=== PATIENT | male | born 1965 | race Caucasian/White ===

== ENCOUNTER 2019-07-22 08:28 | Inpatient (IN) | payer BC ==
[~2019-07-22] VITALS: Ht 182.9 cm; Wt 106.0 kg
[2019-07-22] MEDS ORDERED: PANTOPRAZOLE 80 MG in SODIUM CHLORIDE 0.9% 50 ML IVPB ONE (08:56)
[2019-07-22] MEDS ORDERED: PANTOPRAZOLE 80 MG in SODIUM CHLORIDE 0.9% 100 ML IV SCH (08:56)
[2019-07-22] MEDS ORDERED: ONDANSETRON 2MG/ML, 2ML IVPush ONE (09:00)
[2019-07-22] MEDS ORDERED: ADENOSINE 6 MG/2 ML IVPush ONE (09:00)
[2019-07-22] MEDS ORDERED: SODIUM CHLORIDE FLUSH 10ML SYR IVF ONE (09:00)
[2019-07-22] MEDS ORDERED: SODIUM CHLORIDE 0.9% 1,000ML IVBOLUS ONE ×2 (09:00→10:30)
[2019-07-22] MEDS ORDERED: ADENOSINE 6 MG/2 ML ONE (09:11)
[2019-07-22] MEDS ORDERED: DILTIAZEM 5 MG/ML, 5ML IVPush STA (09:16)
[2019-07-22] MEDS ORDERED: ONDANSETRON 2MG/ML, 2ML ONE (09:25)
[2019-07-22] MEDS ORDERED: DILTIAZEM 5 MG/ML, 5ML ONE (09:25)
[2019-07-22 09:51] LABS: MEAN CORPUSCULAR HEMOGLOBIN 32.2 pg (27.5-34.5); MEAN CORPUSCULAR HGB CONC 33.6 g/dL (33.2-36.2); MEAN CORPUSCULAR VOLUME 95.8 fL (81-97); PLATELET COUNT 259 x10^3/uL (130-400); RED CELL DISTRIBUTION WIDTH 12.8 % (9.4-14.8)
[2019-07-22] MEDS ORDERED: DILTIAZEM 125 MG in SODIUM CHLORIDE 0.9% 100 ML IV SCH (09:54)
[2019-07-22 10:02] LABS: PROTHROMBIN TIME 10.5 Seconds (9.6-11.5)
[2019-07-22] MEDS ORDERED: MORPHINE SULFATE 4 MG/ML, 1ML ONE ×2 (10:22→12:00)
[2019-07-22] MEDS ORDERED: DILTIAZEM 5 MG/ML, 10ML ONE (10:22)
[2019-07-22 10:28] LABS: ALANINE AMINOTRANSFERASE 32 U/L (12-78); ALBUMIN 4.3 g/dL (3.4-5.0); ANION GAP 18 mmol/L (5-15); BASOPHILS # (AUTO) 0.02 x10^3/uL (0-0.1); BASOPHILS % (AUTO) 0 % (0-1); CALCIUM 13.6 mg/dL (8.5-10.1); CHLORIDE 92 mmol/L (98-107); CREATININE 1.64 mg/dL (0.7-1.3); EOSINOPHILS % (AUTO) 0 % (1-7); LYMPHOCYTES # (AUTO) 0.76 x10^3/uL (1-3.4); LYMPHOCYTES % (AUTO) 4 % (22-44); MD SCAN; MONOCYTES # (AUTO) 0.41 x10^3/uL (0.2-0.8); MONOCYTES % (AUTO) 2 % (2-9); NEUTROPHILS # (AUTO) 18.69 x10^3/uL (1.8-6.8); NEUTROPHILS % (AUTO) 94 % (42-75)
[2019-07-22] MEDS ORDERED: DILTIAZEM 5 MG/ML, 5ML IVPush ONE (10:30)
[2019-07-22] MEDS ORDERED: morphine SULFATE 10 MG/ML, 1ML IVPush ONE ×2 (10:30→12:30)
[2019-07-22 10:33] LABS: ALKALINE PHOSPHATASE 116 U/L (45-117); BILIRUBIN,TOTAL 2.3 mg/dL (0.2-1.0); TOTAL PROTEIN 8.2 g/dL (6.4-8.2)
[2019-07-22 10:41] LABS: TROPONIN I 0.246 ng/mL (0.000-0.045)
[2019-07-22] MEDS ORDERED: ASPIRIN 81 MG TABLET CHEW PO ONE (11:00)
[2019-07-22] MEDS ORDERED: ASPIRIN 81 MG TABLET CHEW ONE (11:30)
[2019-07-22] MEDS ORDERED: ASPIRIN 81 MG TABLET EC ONE (11:30)
[2019-07-22] MEDS ORDERED: LORazepam 1MG TABLET PO PRN ×2 (12:00)
[2019-07-22] MEDS ORDERED: ACETAMINOPHEN 325 MG TABLET PO PRN (12:00)
[2019-07-22] MEDS ORDERED: LORazepam 2 MG/ML, 1ML IV PRN ×3 (12:00)
[2019-07-22] MEDS ORDERED: ONDANSETRON 2MG/ML, 2ML IVPush PRN (12:00)
[2019-07-22] MEDS ORDERED: LORazepam 0.5MG TABLET PO PRN (12:00)
[2019-07-22] MEDS ORDERED: ONDANSETRON ODT 4 MG PO PRN (12:00)
--- NOTE | 2019-07-22 12:00 | NUR ---
LATE ENTRY: PT TO ROOM WITH C/O NAUSEA AND VOMITING OF COFFEE GROUND MATERIAL. OCCULT STOOL POSITIVE AT BEDSIDE. 2 IVS STARTED, LAC AND RAC. MEDICATED PER MAR. PT DENIES ANY FURTHER NEEDS OR CONCERNS AT THIS TIME.
[2019-07-22 12:35] LABS: TROPONIN I 0.181 ng/mL (0.000-0.045)
--- NOTE | 2019-07-22 13:21 | NUR ---
PT UPDATED ON PLAN OF CARE. REPORT TO RECEIVING RN. PT DENIES ANY FURTHER NEEDS OR CONCERNS AT THIS TIME. CALL LIGHT IN REACH.
--- NOTE | 2019-07-22 13:23 | NUR ---
PT DENIES ANY FEELING OF ALCOHOL WITHDRAWAL AT THIS TIME, AWARE OF NEED TO MONITOR FOR SYMPTOMS, AGREEABLE TO NOTIFYING STAFF OF ANY NEED IN THE FUTURE. PT AWAITING TRANSPORT AT THIS TIME. CALL LIGHT IN REACH.
[2019-07-22] MEDS ORDERED: SODIUM CHLORIDE 0.9% 1,000 ML IV SCH (14:00)
[2019-07-22 14:38] VITALS: BP 136/81
[2019-07-22] MEDS: SODIUM CHLORIDE 0.9% 1,000 ML IV SCH (14:54)
[2019-07-22] MEDS: INSULIN LISPRO 100 UNITS/ML, PEN SQ-INSULIN SCH ×2 (16:00→21:00)
[2019-07-22] MEDS: PANTOPRAZOLE 80 MG in SODIUM CHLORIDE 0.9% 100 ML IV SCH (16:30)
[2019-07-22] MEDS: LACTOBACILLUS CHEW TABLET PO SCH (17:00)
[2019-07-22 18:03] LABS: TROPONIN I 0.114 ng/mL (0.000-0.045)
[2019-07-22 20:16] VITALS: BP 125/81
[2019-07-22] MEDS: DILTIAZEM 125 MG in SODIUM CHLORIDE 0.9% 100 ML IV SCH (21:09)
[2019-07-22] MEDS ORDERED: MAALOX/HYOSCYAMINE/LIDOCAINE 45 ML BTL PO ONE (21:30)
[2019-07-23 01:06] VITALS: BP 145/94
[2019-07-23] MEDS: PANTOPRAZOLE 80 MG in SODIUM CHLORIDE 0.9% 100 ML IV SCH ×2 (02:49→11:30)
[2019-07-23 06:37] LABS: ANION GAP 9 mmol/L (5-15); CALCIUM 9.9 mg/dL (8.5-10.1); CHLORIDE 106 mmol/L (98-107); CREATININE 1.07 mg/dL (0.7-1.3)
[2019-07-23] MEDS: INSULIN LISPRO 100 UNITS/ML, PEN SQ-INSULIN SCH ×4 (07:00→20:32)
[2019-07-23 07:25] LABS: MEAN CORPUSCULAR HEMOGLOBIN 32.8 pg (27.5-34.5); MEAN CORPUSCULAR HGB CONC 34.4 g/dL (33.2-36.2); MEAN CORPUSCULAR VOLUME 95.2 fL (81-97); MEAN PLATELET VOLUME 8.1 fL (7.4-10.4); PLATELET COUNT 186 x10^3/uL (130-400); RED CELL DISTRIBUTION WIDTH 12.8 % (9.4-14.8)
[2019-07-23] MEDS ORDERED: PANTOPRAZOLE 40 MG IV IVPush SCH (07:30)
[2019-07-23] MEDS: LACTOBACILLUS CHEW TABLET PO SCH ×3 (08:00→17:59)
[2019-07-23 08:09] LABS: BASOPHILS # (AUTO) 0.03 x10^3/uL (0-0.1); BASOPHILS % (AUTO) 0 % (0-1); EOSINOPHILS # (AUTO) 0.01 x10^3/uL (0-0.4); EOSINOPHILS % (AUTO) 0 % (1-7); LYMPHOCYTES # (AUTO) 0.67 x10^3/uL (1-3.4); LYMPHOCYTES % (AUTO) 5 % (22-44); MD SCAN; MONOCYTES # (AUTO) 0.58 x10^3/uL (0.2-0.8); MONOCYTES % (AUTO) 4 % (2-9); NEUTROPHILS # (AUTO) 12.71 x10^3/uL (1.8-6.8); NEUTROPHILS % (AUTO) 91 % (42-75)
[2019-07-23 08:17] VITALS: BP 118/71
[2019-07-23] MEDS: SODIUM CHLORIDE 0.9% 1,000 ML IV SCH (10:06)
[2019-07-23 13:30] VITALS: BP 132/91
[2019-07-23] MEDS: DILTIAZEM 125 MG in SODIUM CHLORIDE 0.9% 100 ML IV SCH (16:43)
[2019-07-23] MEDS: PANTOPROZOLE 40MG TABLET PO SCH ×2 (17:30→20:21)
[2019-07-23] MEDS ORDERED: MAALOX/HYOSCYAMINE/LIDOCAINE 45 ML BTL PO PRN (18:00)
[2019-07-23] MEDS ORDERED: CALCIUM GLUCONATE 9.2 MEQ in SODIUM CHLORIDE 0.9% 100 ML IV ONE (18:00)
[2019-07-23] MEDS: THIAMINE 100MG TABLET PO SCH (20:21)
[2019-07-23 20:26] VITALS: BP 155/95
[2019-07-24 01:26] VITALS: BP 119/69
[2019-07-24] MEDS: SODIUM CHLORIDE 0.9% 1,000 ML IV SCH ×2 (02:07→16:35)
[2019-07-24 02:37] LABS: MICROSCOPIC NOT IND
[2019-07-24 02:42] LABS: CULTURE INDICATED? NO
[2019-07-24] MEDS: DILTIAZEM 125 MG in SODIUM CHLORIDE 0.9% 100 ML IV SCH ×2 (03:41→09:30)
[2019-07-24 06:30] LABS: BASOPHILS # (AUTO) 0.04 x10^3/uL (0-0.1); BASOPHILS % (AUTO) 1 % (0-1); EOSINOPHILS # (AUTO) 0.03 x10^3/uL (0-0.4); EOSINOPHILS % (AUTO) 0 % (1-7); LYMPHOCYTES # (AUTO) 1.14 x10^3/uL (1-3.4); LYMPHOCYTES % (AUTO) 15 % (22-44); MD NO; MEAN CORPUSCULAR HEMOGLOBIN 32.5 pg (27.5-34.5); MEAN CORPUSCULAR VOLUME 95.5 fL (81-97); MEAN PLATELET VOLUME 8.5 fL (7.4-10.4); MONOCYTES # (AUTO) 0.54 x10^3/uL (0.2-0.8); MONOCYTES % (AUTO) 7 % (2-9); NEUTROPHILS # (AUTO) 5.93 x10^3/uL (1.8-6.8); NEUTROPHILS % (AUTO) 77 % (42-75); PLATELET COUNT 148 x10^3/uL (130-400); RED BLOOD COUNT 3.65 x10^6/uL (4.38-5.82); RED CELL DISTRIBUTION WIDTH 12.8 % (9.4-14.8)
[2019-07-24 06:33] LABS: ALBUMIN 2.8 g/dL (3.4-5.0); ANION GAP 5 mmol/L (5-15); CALCIUM 9.2 mg/dL (8.5-10.1); CHLORIDE 110 mmol/L (98-107)
[2019-07-24 06:36] LABS: ALANINE AMINOTRANSFERASE 31 U/L (12-78); ALKALINE PHOSPHATASE 55 U/L (45-117); BILIRUBIN,TOTAL 0.7 mg/dL (0.2-1.0); CREATININE 0.98 mg/dL (0.7-1.3); TOTAL PROTEIN 5.1 g/dL (6.4-8.2)
[2019-07-24] MEDS: INSULIN LISPRO 100 UNITS/ML, PEN SQ-INSULIN SCH (07:00)
[2019-07-24 07:13] VITALS: BP 125/77
[2019-07-24] MEDS: DILTIAZEM 90 MG TABLET PO SCH ×4 (08:33→20:48)
[2019-07-24] MEDS: LACTOBACILLUS CHEW TABLET PO SCH ×3 (08:33→16:21)
[2019-07-24] MEDS: THIAMINE 100MG TABLET PO SCH ×2 (08:33→20:48)
[2019-07-24] MEDS: PANTOPROZOLE 40MG TABLET PO SCH ×2 (08:33→20:48)
[2019-07-24] MEDS ORDERED: MAGNESIUM SULFATE/D5W 100 ML IV ONE (09:00)
[2019-07-24] MEDS: POTASSIUM CHLORIDE 20 MEQ TAB.ER.PRT PO SCH ×2 (09:44→11:08)
[2019-07-24] MEDS: POTASSIUM PHOSPHATE 44 MEQ in SODIUM CHLORIDE 0.9% 500 ML IV SCH ×2 (09:58→20:48)
[2019-07-24 13:22] VITALS: BP 108/70
[2019-07-24 19:24] VITALS: BP 117/66
[2019-07-25 01:32] VITALS: BP 134/83
[2019-07-25] MEDS ORDERED: PROPRANOLOL 10 MG TABLET ONE ×4 (05:53→21:19)
[2019-07-25] MEDS: PROPRANOLOL 20 MG TABLET PO SCH ×2 (06:00→14:00)
[2019-07-25 06:03] VITALS: BP 151/93
[2019-07-25] MEDS: DILTIAZEM 90 MG TABLET PO SCH ×4 (06:05→21:32)
[2019-07-25 07:13] LABS: BASOPHILS # (AUTO) 0.04 x10^3/uL (0-0.1); BASOPHILS % (AUTO) 1 % (0-1); EOSINOPHILS # (AUTO) 0.13 x10^3/uL (0-0.4); EOSINOPHILS % (AUTO) 2 % (1-7); LYMPHOCYTES # (AUTO) 1.25 x10^3/uL (1-3.4); LYMPHOCYTES % (AUTO) 17 % (22-44); MD NO; MEAN CORPUSCULAR HEMOGLOBIN 32.5 pg (27.5-34.5); MEAN CORPUSCULAR HGB CONC 33.5 g/dL (33.2-36.2); MEAN PLATELET VOLUME 8.2 fL (7.4-10.4); MONOCYTES # (AUTO) 0.53 x10^3/uL (0.2-0.8); MONOCYTES % (AUTO) 7 % (2-9); NEUTROPHILS # (AUTO) 5.47 x10^3/uL (1.8-6.8); NEUTROPHILS % (AUTO) 74 % (42-75); PLATELET COUNT 178 x10^3/uL (130-400); RED BLOOD COUNT 4.03 x10^6/uL (4.38-5.82)
[2019-07-25 07:24] LABS: ALBUMIN 3.2 g/dL (3.4-5.0); ANION GAP 7 mmol/L (5-15); CALCIUM 8.5 mg/dL (8.5-10.1); CHLORIDE 111 mmol/L (98-107)
[2019-07-25 07:27] LABS: ALANINE AMINOTRANSFERASE 47 U/L (12-78); ALKALINE PHOSPHATASE 61 U/L (45-117); BILIRUBIN,TOTAL 0.4 mg/dL (0.2-1.0); CREATININE 1.01 mg/dL (0.7-1.3); TOTAL PROTEIN 5.8 g/dL (6.4-8.2)
[2019-07-25 07:48] VITALS: BP 127/84
[2019-07-25] MEDS ORDERED: FENTANYL PF 100 MCG/2ML IV PRN (08:30)
[2019-07-25] MEDS: LACTOBACILLUS CHEW TABLET PO SCH ×3 (09:19→17:04)
[2019-07-25] MEDS: THIAMINE 100MG TABLET PO SCH ×2 (09:19→21:32)
[2019-07-25] MEDS: PANTOPROZOLE 40MG TABLET PO SCH ×2 (09:19→21:32)
[2019-07-25] MEDS ORDERED: PROPOFOL 10 MG/ML, 20ML ONE (10:46)
[2019-07-25] MEDS: SUCRALFATE 1 GM/10 ML UDC PO SCH ×3 (12:32→21:32)
[2019-07-25] MEDS ORDERED: REGADENOSON 0.4 MG/5 ML SYRINGE ONE (13:27)
[2019-07-25] MEDS ORDERED: DILT360T PO (17:28)
[2019-07-25] MEDS ORDERED: PROP40TA PO (17:28)
[2019-07-25] MEDS ORDERED: Maalox/Hyoscyamine/Lidocaine PO (17:28)
[2019-07-25] MEDS ORDERED: ONDA4TAB13 PO (17:28)
[2019-07-25] MEDS ORDERED: PANT40TA5 PO (17:28)
[2019-07-25] MEDS ORDERED: THIA100T67 PO (17:28)
[2019-07-25] MEDS ORDERED: ACID1TAB7 PO (17:28)
[2019-07-25] MEDS ORDERED: PROPRANOLOL 20 MG TABLET PO ONE (17:30)
[2019-07-25] MEDS ORDERED: ERGOCALCIFEROL 50,000 UNIT CAPSULE PO SCH (17:30)
[2019-07-25 20:08] VITALS: BP 132/81
[2019-07-25] MEDS: PROPRANOLOL 40 MG TABLET PO SCH (21:32)
[2019-07-25] MEDS: SODIUM CHLORIDE 0.9% 1,000 ML IV SCH (21:33)
[2019-07-26 01:28] VITALS: BP 138/79
[2019-07-26] MEDS: DILTIAZEM 90 MG TABLET PO SCH (05:55)
[2019-07-26] MEDS: PROPRANOLOL 40 MG TABLET PO SCH (05:55)
[2019-07-26 07:23] VITALS: BP 129/84
[2019-07-26] MEDS: LACTOBACILLUS CHEW TABLET PO SCH (08:24)
[2019-07-26] MEDS: PANTOPROZOLE 40MG TABLET PO SCH (08:25)
[2019-07-26] MEDS: SUCRALFATE 1 GM/10 ML UDC PO SCH (08:25)
[2019-07-26] MEDS: THIAMINE 100MG TABLET PO SCH (08:25)
[2019-07-26] MEDS ORDERED: SUCR1TAB33 PO (09:44)
== END 2019-07-26 11:25 | disposition home or self-care (01) | DRG 377 ==
LOC: ED 09:00 → EDIP 11:54 → 5SO 14:27
PROVIDERS: ADMIT Internal Medicine; ATTEND Internal Medicine
PROC: 0DJ08ZZ Inspection of Upper Intestinal Tract, Via Natural or Artificial Opening Endoscopic (ICD-10-PCS; principal; 2019-07-25 09:00)
DX: K29.21 Alcoholic gastritis with bleeding (principal); G93.41 Metabolic encephalopathy; E87.1 Hypo-osmolality and hyponatremia; N17.9 Acute kidney failure, unspecified; F23 Brief psychotic disorder; K20.9 Esophagitis, unspecified; E11.65 Type 2 diabetes mellitus with hyperglycemia; I73.89 Other specified peripheral vascular diseases; F10.20 Alcohol dependence, uncomplicated; E66.9 Obesity, unspecified; E83.52 Hypercalcemia; E83.51 Hypocalcemia; I10 Essential (primary) hypertension; I48.91 Unspecified atrial fibrillation; K31.89 Other diseases of stomach and duodenum; Z80.3 Family history of malignant neoplasm of breast; Z85.828 Personal history of other malignant neoplasm of skin; Z87.19 Personal history of other diseases of the digestive system
CPT/HCPCS: 36415; 71045; 78452; 80048; 80053; 81003; 82306; 82330; 82962; 83036; 83605; 83690; 83735; 84100; 84443; 84484; 85014; 85018; 85025; 85610; 93005; 93017; 93306; 99291; G0378; J0153; J0610; J2405; J2704; J2785; A9502; C9113; J2060; J2270; J7030; J7040

== ENCOUNTER 2019-12-17 08:21 | Inpatient (IN) | payer BC ==
[~2019-12-17] VITALS: Ht 182.9 cm; Wt 104.6 kg
[~2019-12-17 08:21] MED LIST: ACID1TAB7 PO; DILT360T PO; Maalox/Hyoscyamine/Lidocaine PO; ONDA4TAB13 PO; PANT40TA5 PO; PROP40TA PO; SUCR1TAB33 PO; THIA100T67 PO
[2019-12-17] MEDS ORDERED: THIAMINE 100MG TABLET PO ONE (09:00)
[2019-12-17] MEDS ORDERED: SODIUM CHLORIDE FLUSH 10ML SYR IVF ONE (09:00)
[2019-12-17] MEDS ORDERED: SODIUM CHLORIDE 0.9% 1,000ML IVBOLUS ONE (09:00)
[2019-12-17] MEDS ORDERED: THIAMINE 100MG TABLET ONE (09:08)
[2019-12-17] MEDS ORDERED: LORazepam 2 MG/ML, 1ML ONE ×2 (09:08→09:48)
[2019-12-17 09:16] LABS: BASOPHILS % (AUTO) 0 % (0-1); EOSINOPHILS # (AUTO) 0.01 x10^3/uL (0-0.4); EOSINOPHILS % (AUTO) 0 % (1-7); LYMPHOCYTES # (AUTO) 0.66 x10^3/uL (1-3.4); LYMPHOCYTES % (AUTO) 7 % (22-44); MD NO; MEAN CORPUSCULAR HGB CONC 34.2 g/dL (33.2-36.2); MEAN CORPUSCULAR VOLUME 96.4 fL (81-97); MEAN PLATELET VOLUME 8.3 fL (7.4-10.4); MONOCYTES # (AUTO) 0.56 x10^3/uL (0.2-0.8); MONOCYTES % (AUTO) 6 % (2-9); NEUTROPHILS # (AUTO) 7.98 x10^3/uL (1.8-6.8); NEUTROPHILS % (AUTO) 87 % (42-75); PLATELET COUNT 135 x10^3/uL (130-400); RED BLOOD COUNT 5.11 x10^6/uL (4.38-5.82); RED CELL DISTRIBUTION WIDTH 14.9 % (9.4-14.8)
[2019-12-17] MEDS: LORazepam 2 MG/ML, 1ML IVPush PRN ×5 (09:18→18:03)
[2019-12-17 09:28] LABS: ALBUMIN 4.5 g/dL (3.4-5.0); ANION GAP 12 mmol/L (5-15); CALCIUM 8.9 mg/dL (8.5-10.1); CHLORIDE 107 mmol/L (98-107)
[2019-12-17 09:36] LABS: ALANINE AMINOTRANSFERASE 62 U/L (12-78); ALKALINE PHOSPHATASE 70 U/L (45-117); BILIRUBIN,TOTAL 0.9 mg/dL (0.2-1.0); CREATININE 1.43 mg/dL (0.7-1.3); SALICYLATE LEVEL 8.9 mg/dL (2.8-20.0); TOTAL PROTEIN 7.7 g/dL (6.4-8.2)
[2019-12-17 09:38] LABS: INTERNATIONAL NORMALIZED RATIO 0.94 (0.93-1.1)
[2019-12-17] MEDS ORDERED: CHLORDIAZEPOXIDE 25 MG CAPSULE PO PRN (10:30)
[2019-12-17] MEDS ORDERED: CHLORDIAZEPOXIDE 25 MG CAPSULE ONE (11:05)
--- NOTE | 2019-12-17 12:24 | NUR ---
TASK RN: PT LYING ON LEFT SIDE SLEEPING, BREATHING EVEN AND UNLABORED.
--- NOTE | 2019-12-17 12:50 | NUR ---
REPORT TO GORDON. KALINA TO BE TRANSPORTED TO FLOOR
[2019-12-17 13:20] VITALS: BP 144/90
[2019-12-17 15:42] LABS: AMPHETAMINE SCREEN, URINE Negative (Negative); BARBITURATE SCREEN, URINE Negative (Negative); BENZODIAZEPINE SCREEN, URINE Negative (Negative); CANNABINOID SCREEN, URINE Negative (Negative); COCAINE SCREEN, URINE Negative (Negative); METHADONE SCREEN, URINE Negative (Negative); OPIATE SCREEN, URINE Negative (Negative)
[2019-12-17] MEDS ORDERED: hydrALAzine 20 MG/ML, 1ML IVPush PRN (18:00)
[2019-12-17] MEDS ORDERED: ONDANSETRON 2MG/ML, 2ML IVPush PRN (18:00)
[2019-12-17] MEDS ORDERED: POLYETHYLENE GLYCOL 17 GM PACKET PO PRN (18:00)
[2019-12-17] MEDS ORDERED: ZOLPIDEM 5MG TABLET PO PRN (18:00)
[2019-12-17] MEDS ORDERED: LIDODERM 5% PATCH TD PRN (18:00)
[2019-12-17] MEDS ORDERED: morphine SULFATE 10 MG/ML, 1ML IVPush PRN (18:00)
[2019-12-17] MEDS ORDERED: LABETALOL 5MG/ML, 20ML IVPush PRN (18:00)
[2019-12-17 19:40] VITALS: BP 126/81
[2019-12-17 19:49] LABS: FREE T4 (FREE THYROXINE) 1.02 ng/dL (0.76-1.46); TROPONIN I < 0.015 ng/mL (0.000-0.045)
[2019-12-17] MEDS: HEPARIN 5,000 UNITS/ML, 1ML SQ SCH (20:14)
[2019-12-17] MEDS: NS + 20MEQ KCL 1,000 ML IV SCH (20:15)
[2019-12-18 00:20] LABS: TROPONIN I < 0.015 ng/mL (0.000-0.045)
[2019-12-18 00:24] VITALS: BP 137/96
[2019-12-18] MEDS: LORazepam 2 MG/ML, 1ML IVPush PRN ×5 (00:30→19:55)
[2019-12-18 05:31] LABS: BASOPHILS # (AUTO) 0.03 x10^3/uL (0-0.1); BASOPHILS % (AUTO) 1 % (0-1); EOSINOPHILS % (AUTO) 2 % (1-7); LYMPHOCYTES % (AUTO) 25 % (22-44); MD NO; MEAN CORPUSCULAR HEMOGLOBIN 32.6 pg (27.5-34.5); MEAN CORPUSCULAR HGB CONC 33.6 g/dL (33.2-36.2); MEAN CORPUSCULAR VOLUME 96.9 fL (81-97); MEAN PLATELET VOLUME 8.7 fL (7.4-10.4); MONOCYTES # (AUTO) 0.56 x10^3/uL (0.2-0.8); MONOCYTES % (AUTO) 12 % (2-9); NEUTROPHILS # (AUTO) 3.01 x10^3/uL (1.8-6.8); NEUTROPHILS % (AUTO) 62 % (42-75); PLATELET COUNT 116 x10^3/uL (130-400); RED BLOOD COUNT 4.15 x10^6/uL (4.38-5.82); RED CELL DISTRIBUTION WIDTH 15.2 % (9.4-14.8)
[2019-12-18 05:38] LABS: ALBUMIN 3.1 g/dL (3.4-5.0); CALCIUM 7.6 mg/dL (8.5-10.1); CHLORIDE 113 mmol/L (98-107)
[2019-12-18 05:43] LABS: ALANINE AMINOTRANSFERASE 45 U/L (12-78); ALKALINE PHOSPHATASE 49 U/L (45-117); ANION GAP 10 mmol/L (5-15); BILIRUBIN,TOTAL 0.8 mg/dL (0.2-1.0); CHOL/HDL RATIO 2.4; CHOLESTEROL, TOTAL 152 mg/dL (140-239); CREATININE 1.03 mg/dL (0.7-1.3); HDL CHOL % 42 % (26-37); HDL CHOLESTEROL (DIRECT) 64 mg/dL (40-60); LDL CHOLESTEROL,CALCULATED 69 mg/dL (54-169); LDL/HDL RATIO 1.1 (0.5-3.0); TOTAL PROTEIN 5.7 g/dL (6.4-8.2); TRIGLYCERIDES 93 mg/dL (50-200); VLDL CHOLESTEROL 19 mg/dL (0-25)
[2019-12-18] MEDS: HEPARIN 5,000 UNITS/ML, 1ML SQ SCH ×3 (06:07→21:00)
[2019-12-18] MEDS: NS + 20MEQ KCL 1,000 ML IV SCH ×2 (06:08→14:18)
[2019-12-18 06:41] VITALS: BP 131/92
[2019-12-18 12:47] VITALS: BP 138/86
[2019-12-18 18:01] VITALS: BP 142/81
[2019-12-19 02:00] VITALS: BP 155/83
[2019-12-19] MEDS: HEPARIN 5,000 UNITS/ML, 1ML SQ SCH ×2 (04:53→13:00)
[2019-12-19 05:40] LABS: BASOPHILS # (AUTO) 0.02 x10^3/uL (0-0.1); BASOPHILS % (AUTO) 0 % (0-1); EOSINOPHILS # (AUTO) 0.09 x10^3/uL (0-0.4); EOSINOPHILS % (AUTO) 2 % (1-7); LYMPHOCYTES % (AUTO) 24 % (22-44); MD NO; MEAN CORPUSCULAR HEMOGLOBIN 32.5 pg (27.5-34.5); MEAN CORPUSCULAR HGB CONC 33.5 g/dL (33.2-36.2); MEAN CORPUSCULAR VOLUME 96.9 fL (81-97); MEAN PLATELET VOLUME 8.5 fL (7.4-10.4); MONOCYTES % (AUTO) 12 % (2-9); NEUTROPHILS # (AUTO) 3.06 x10^3/uL (1.8-6.8); NEUTROPHILS % (AUTO) 62 % (42-75); PLATELET COUNT 122 x10^3/uL (130-400); RED BLOOD COUNT 4.19 x10^6/uL (4.38-5.82); RED CELL DISTRIBUTION WIDTH 14.6 % (9.4-14.8)
[2019-12-19 05:50] LABS: ANION GAP 7 mmol/L (5-15); CALCIUM 8.2 mg/dL (8.5-10.1); CHLORIDE 111 mmol/L (98-107); CREATININE 1.02 mg/dL (0.7-1.3)
[2019-12-19 06:13] VITALS: BP 147/97
[2019-12-19] MEDS ORDERED: THIAMINE 100MG TABLET PO SCH (09:00)
[2019-12-19] MEDS ORDERED: FOLIC ACID 1 MG TABLET PO SCH (09:00)
[2019-12-19] MEDS ORDERED: MULTIVITAMIN 1 TABLET PO SCH (09:00)
== END 2019-12-19 13:21 | disposition home or self-care (01) | DRG 880 ==
LOC: ED 09:49 → EDIP 11:15 → 4WST 12:59 → DCLOUNGE 12-19 13:12
PROVIDERS: ADMIT Internal Medicine; ATTEND Internal Medicine
DX: R44.0 Auditory hallucinations (principal); N17.0 Acute kidney failure with tubular necrosis; F10.232 Alcohol dependence with withdrawal with perceptual disturbance; F10.251 Alcohol dependence with alcohol-induced psychotic disorder with hallucinations; E66.9 Obesity, unspecified; F41.9 Anxiety disorder, unspecified; I10 Essential (primary) hypertension; I48.91 Unspecified atrial fibrillation; Z82.3 Family history of stroke; Z80.3 Family history of malignant neoplasm of breast; Z85.828 Personal history of other malignant neoplasm of skin; Z68.31 Body mass index [BMI] 31.0-31.9, adult
CPT/HCPCS: 36415; 80048; 80053; 80061; 80307; 82140; 83036; 83690; 84439; 84443; 84484; 85025; 85610; 93005; 99291; G0378; J3480; J2060; J7030

== ENCOUNTER 2020-01-19 03:55 | Emergency (ER) | payer BC ==
[~2020-01-19] VITALS: Ht 180.3 cm; Wt 105.0 kg
[2020-01-19] MEDS ORDERED: THIAMINE 100MG TABLET ONE (04:53)
[2020-01-19] MEDS ORDERED: hydrOXyzine 50MG TABLET ONE ×2 (04:54→04:56)
--- NOTE | 2020-01-19 04:54 | NUR ---
WHILE ADMINISTERING MEDICATIONS THE PATIENT STATED THAT HE WANTED "EXTRA DOSES" OF MEDICATION. EDUCATION WAS GIVEN TO THE PATIENT REGARDING MEDICATION DOSAGES THAT ARE APPROPRIATE FOR THE PATIENT, AND PROVIDER ORDERED DOSAGE. NO EVIDENCE OF LEARNING EXHIBITED.
[2020-01-19] MEDS ORDERED: THIAMINE 100MG TABLET PO ONE (05:00)
[2020-01-19 05:17] LABS: BASOPHILS # (AUTO) 0.02 x10^3/uL (0-0.1); BASOPHILS % (AUTO) 0 % (0-1); EOSINOPHILS # (AUTO) 0.12 x10^3/uL (0-0.4); EOSINOPHILS % (AUTO) 2 % (1-7); LYMPHOCYTES # (AUTO) 1.19 x10^3/uL (1-3.4); LYMPHOCYTES % (AUTO) 16 % (22-44); MD NO; MEAN CORPUSCULAR HEMOGLOBIN 32.4 pg (27.5-34.5); MEAN CORPUSCULAR HGB CONC 34.1 g/dL (33.2-36.2); MEAN CORPUSCULAR VOLUME 95.1 fL (81-97); MONOCYTES # (AUTO) 0.47 x10^3/uL (0.2-0.8); MONOCYTES % (AUTO) 6 % (2-9); NEUTROPHILS # (AUTO) 5.54 x10^3/uL (1.8-6.8); NEUTROPHILS % (AUTO) 75 % (42-75); PLATELET COUNT 145 x10^3/uL (130-400); RED BLOOD COUNT 4.75 x10^6/uL (4.38-5.82)
[2020-01-19] MEDS ORDERED: LORazepam 2 MG/ML, 1ML ONE (05:18)
[2020-01-19 05:27] LABS: ALBUMIN 3.8 g/dL (3.4-5.0); ANION GAP 5 mmol/L (5-15); CALCIUM 8.6 mg/dL (8.5-10.1); CHLORIDE 108 mmol/L (98-107)
[2020-01-19] MEDS ORDERED: SODIUM CHLORIDE 0.9% 1,000ML IVBOLUS ONE (05:30)
[2020-01-19] MEDS ORDERED: LORazepam 2 MG/ML, 1ML IVPush ONE (05:30)
--- NOTE | 2020-01-19 05:31 | NUR ---
WHILE ADMINISTERING MEDICATION PATIENT STATED "GIVE ME THE BIGGEST DOSE YOU CAN, I JUST WANT TO SLEEP". PATIENT DENIES ANY SYMPTOMS RELATED TO WITHDRAWL. CIWA SCORE GIVEN TO PATIENT REGARDING SELF REPORTED HALLUCINATIONS, AND ANXIETY. PATIENT DOES NOT HAVE TREMORS, AND DOES NOT APPEAR TO BE RESPONDING TO ANY INTERNAL STIMULI. PATIENT UPDATED ON PLAN OF CARE. FLUIDS STARTED. VITAL SIGNS STABLE. WILL CONTINUE TO MONITOR.
[2020-01-19 05:32] LABS: ALANINE AMINOTRANSFERASE 49 U/L (12-78); ALKALINE PHOSPHATASE 63 U/L (45-117); BILIRUBIN,TOTAL 0.9 mg/dL (0.2-1.0); CREATININE 1.11 mg/dL (0.7-1.3); TOTAL PROTEIN 6.8 g/dL (6.4-8.2)
[2020-01-19 06:22] VITALS: BP 134/84
[2020-01-19] MEDS ORDERED: HYDR50TA99 PO (20:22)
[2020-01-19] MEDS ORDERED: AMLO5TAB10 PO (20:22)
== END 2020-01-19 06:25 | disposition home or self-care (01) ==
LOC: ED 05:11
DX: F10.239 Alcohol dependence with withdrawal, unspecified (principal); R44.0 Auditory hallucinations; R45.1 Restlessness and agitation; R45.4 Irritability and anger; I49.3 Ventricular premature depolarization; R00.0 Tachycardia, unspecified; I10 Essential (primary) hypertension; Y90.9 Presence of alcohol in blood, level not specified
CPT/HCPCS: 36415; 80053; 80307; 83690; 85025; 93005; 96374; 99284; J2060; J7030; Q0177; 99283

== ENCOUNTER 2020-01-19 19:21 | Inpatient (IN) | payer BC ==
[~2020-01-19] VITALS: Ht 180.3 cm; Wt 105.9 kg
[2020-01-19] MEDS ORDERED: LORazepam 2 MG/ML, 1ML ONE ×2 (19:57→20:29)
[2020-01-19] MEDS ORDERED: THIAMINE 100 MG in SODIUM CHLORIDE 0.9% 50 ML IVPB ONE (20:00)
[2020-01-19] MEDS ORDERED: SODIUM CHLORIDE 0.9% 1,000ML IVBOLUS ONE (20:00)
[2020-01-19] MEDS ORDERED: SODIUM CHLORIDE FLUSH 10ML SYR IVF ONE (20:00)
[2020-01-19] MEDS: LORazepam 2 MG/ML, 1ML IVPush PRN ×2 (20:13→20:34)
--- NOTE | 2020-01-19 20:13 | NUR ---
Ativan 1mg given at 2012
[2020-01-19] MEDS ORDERED: AMLO5TAB10 PO (20:22)
[2020-01-19] MEDS ORDERED: HYDR50TA99 PO (20:22)
--- NOTE | 2020-01-19 20:24 | NUR ---
ATIVAN 1MG DOSE #[address] ANN AT . NS INFUSING W-O.
--- NOTE | 2020-01-19 20:35 | NUR ---
ATIVAN 1MG DOSE #3 GIVEN. THIAMINE HUNG, INFUSING AT 100ML/HR VIA PUMP. IV SITE PATENT. CARDIAC & VS MONITORING CONTINUING.
--- NOTE | 2020-01-19 20:36 | NUR ---
PT STATES HE WAS IN THIS ED EARLIER TODAY. STATES HE'S HAVING AUDITORY HALLUCINATIONS. DENIES ETOH INTAKE BETWEEN PRIOR DC AND THIS ED VISIT. STATES LAST ETOH INTAKE WAS 4 DAYS AGO. HAD A SMALL BREAKFAST THIS AM.
[2020-01-19 21:17] LABS: BASOPHILS # (AUTO) 0.02 x10^3/uL (0-0.1); BASOPHILS % (AUTO) 0 % (0-1); EOSINOPHILS # (AUTO) 0.06 x10^3/uL (0-0.4); EOSINOPHILS % (AUTO) 1 % (1-7); LYMPHOCYTES % (AUTO) 12 % (22-44); MD NO; MEAN CORPUSCULAR HEMOGLOBIN 32.4 pg (27.5-34.5); MEAN CORPUSCULAR HGB CONC 33.8 g/dL (33.2-36.2); MEAN CORPUSCULAR VOLUME 95.7 fL (81-97); MEAN PLATELET VOLUME 8.2 fL (7.4-10.4); MONOCYTES # (AUTO) 0.56 x10^3/uL (0.2-0.8); MONOCYTES % (AUTO) 7 % (2-9); NEUTROPHILS # (AUTO) 6.23 x10^3/uL (1.8-6.8); NEUTROPHILS % (AUTO) 80 % (42-75); PLATELET COUNT 143 x10^3/uL (130-400); RED BLOOD COUNT 4.33 x10^6/uL (4.38-5.82)
--- NOTE | 2020-01-19 21:20 | NUR ---
THIAMINE INFUSION COMPLETED. NS BOLUS COMPLETED. PT RESTING QUIETLY ON GURNEY. CARDIAC & VS MONITORING CONTINUING. SIDE RAILS UP X 2, CALL LIGHT W/IN REACH. PT NOTIFIED OF NEED FOR URINE SPECIMEN; URINAL PROVIDED.
[2020-01-19 21:25] LABS: ALANINE AMINOTRANSFERASE 51 U/L (12-78); ALBUMIN 3.6 g/dL (3.4-5.0); ANION GAP 5 mmol/L (5-15); CALCIUM 8.3 mg/dL (8.5-10.1); CHLORIDE 113 mmol/L (98-107); CREATININE 0.98 mg/dL (0.7-1.3); SALICYLATE LEVEL < 1.7 mg/dL (2.8-20.0)
[2020-01-19 21:28] LABS: ALKALINE PHOSPHATASE 58 U/L (45-117); BILIRUBIN,TOTAL 0.4 mg/dL (0.2-1.0); CREATINE KINASE, TOTAL 57 U/L (39-308); TOTAL PROTEIN 6.3 g/dL (6.4-8.2)
--- NOTE | 2020-01-19 21:29 | NUR ---
CXR AT BS
--- NOTE | 2020-01-19 21:51 | NUR ---
PT RESTING ON GURKAREL, MONITORING CONTINUING. PT STATES HE'S FEELING BETTER. REMINDED OF NEED FOR URINE SPECIMEN.
[2020-01-19] MEDS ORDERED: ACETAMINOPHEN 325 MG TABLET PO PRN (22:00)
[2020-01-19] MEDS ORDERED: BISACODYL 10 MG SUPP PR PRN (22:00)
[2020-01-19] MEDS ORDERED: HEPARIN 5,000 UNITS/ML, 1ML SQ SCH (22:00)
[2020-01-19] MEDS ORDERED: hydrALAzine 20 MG/ML, 1ML IVPush PRN (22:00)
[2020-01-19] MEDS ORDERED: POLYETHYLENE GLYCOL 17 GM PACKET PO PRN (22:00)
[2020-01-19] MEDS ORDERED: MELATONIN 5 MG TABLET PO PRN (22:00)
[2020-01-19] MEDS ORDERED: ONDANSETRON 2MG/ML, 2ML IVPush PRN (22:00)
--- NOTE | 2020-01-19 22:01 | NUR ---
PT REPORT TO ORESTES Lawson RN. PT CARE TRANSFERRED.
--- NOTE | 2020-01-19 22:12 | NUR ---
report of pt from ninoska renteria and assuming care of pt at this time.
--- NOTE | 2020-01-19 22:51 | NUR ---
PT ASLEEP IN [facility] AT THIS TIME; NADN. ALL VSS AT THIS TIME.
[2020-01-20 00:12] VITALS: BP 135/94
[2020-01-20] MEDS: MVI ADULT IV SCH (00:56)
[2020-01-20] MEDS: [UNRECOGNIZED DRUG - OTHER] IV SCH (00:56)
[2020-01-20] MEDS: FOLIC ACID IV SCH (00:56)
[2020-01-20] MEDS: THIAMINE IV SCH (00:56)
[2020-01-20 01:29] VITALS: BP 135/94
[2020-01-20 06:06] LABS: AMPHETAMINE SCREEN, URINE Negative (Negative); BARBITURATE SCREEN, URINE Negative (Negative); BENZODIAZEPINE SCREEN, URINE Negative (Negative); CANNABINOID SCREEN, URINE Negative (Negative); COCAINE SCREEN, URINE Negative (Negative); METHADONE SCREEN, URINE Negative (Negative); OPIATE SCREEN, URINE Negative (Negative)
[2020-01-20 06:10] VITALS: BP 159/100
[2020-01-20 06:29] LABS: BASOPHILS # (AUTO) 0.02 x10^3/uL (0-0.1); BASOPHILS % (AUTO) 0 % (0-1); EOSINOPHILS % (AUTO) 1 % (1-7); LYMPHOCYTES % (AUTO) 15 % (22-44); MD NO; MEAN CORPUSCULAR HEMOGLOBIN 32.2 pg (27.5-34.5); MEAN CORPUSCULAR HGB CONC 33.1 g/dL (33.2-36.2); MEAN CORPUSCULAR VOLUME 97.4 fL (81-97); MEAN PLATELET VOLUME 8.3 fL (7.4-10.4); MONOCYTES # (AUTO) 0.61 x10^3/uL (0.2-0.8); MONOCYTES % (AUTO) 8 % (2-9); NEUTROPHILS # (AUTO) 5.47 x10^3/uL (1.8-6.8); NEUTROPHILS % (AUTO) 75 % (42-75); PLATELET COUNT 132 x10^3/uL (130-400); RED BLOOD COUNT 4.35 x10^6/uL (4.38-5.82); RED CELL DISTRIBUTION WIDTH 13.8 % (9.4-14.8)
[2020-01-20 06:55] LABS: ANION GAP 7 mmol/L (5-15); CHLORIDE 112 mmol/L (98-107)
[2020-01-20 07:12] LABS: CALCIUM 8.4 mg/dL (8.5-10.1); CREATININE 0.99 mg/dL (0.7-1.3)
[2020-01-20] MEDS: CHLORDIAZEPOXIDE 25 MG CAPSULE PO PRN ×2 (07:40→13:07)
[2020-01-20] MEDS: PANTOPRAZOLE 40 MG IV IVPush SCH (07:40)
[2020-01-20] MEDS: SENNA/DOCUSATE TABLET PO SCH (07:43)
[2020-01-20] MEDS ORDERED: POTASSIUM PHOSPHATE 44 MEQ in SODIUM CHLORIDE 0.9% 500 ML IV ONE (10:00)
[2020-01-20 12:11] VITALS: BP 164/98
[2020-01-20] MEDS: LORazepam 2 MG/ML, 1ML IVPush PRN (16:21)
[2020-01-20 18:50] VITALS: BP 149/104
[2020-01-20] MEDS ORDERED: ZOLPIDEM 10MG TABLET PO PRN (19:00)
[2020-01-20] MEDS: ZOLPIDEM 10MG TABLET PO PRN (20:23)
[2020-01-21 00:45] VITALS: BP 143/96
[2020-01-21] MEDS: MVI ADULT IV SCH (01:10)
[2020-01-21] MEDS: FOLIC ACID IV SCH (01:10)
[2020-01-21] MEDS: [UNRECOGNIZED DRUG - OTHER] IV SCH (01:10)
[2020-01-21] MEDS: THIAMINE IV SCH (01:10)
[2020-01-21] MEDS: ZOLPIDEM 10MG TABLET PO PRN (02:07)
[2020-01-21 05:11] LABS: BASOPHILS # (AUTO) 0.04 x10^3/uL (0-0.1); BASOPHILS % (AUTO) 1 % (0-1); EOSINOPHILS # (AUTO) 0.08 x10^3/uL (0-0.4); EOSINOPHILS % (AUTO) 1 % (1-7); LYMPHOCYTES # (AUTO) 1.13 x10^3/uL (1-3.4); LYMPHOCYTES % (AUTO) 17 % (22-44); MD NO; MEAN CORPUSCULAR HEMOGLOBIN 32.4 pg (27.5-34.5); MEAN CORPUSCULAR HGB CONC 33.3 g/dL (33.2-36.2); MEAN CORPUSCULAR VOLUME 97.4 fL (81-97); MEAN PLATELET VOLUME 7.9 fL (7.4-10.4); MONOCYTES # (AUTO) 0.64 x10^3/uL (0.2-0.8); MONOCYTES % (AUTO) 10 % (2-9); NEUTROPHILS # (AUTO) 4.61 x10^3/uL (1.8-6.8); NEUTROPHILS % (AUTO) 71 % (42-75); PLATELET COUNT 159 x10^3/uL (130-400); RED BLOOD COUNT 4.45 x10^6/uL (4.38-5.82)
[2020-01-21 05:17] LABS: ALBUMIN 3.8 g/dL (3.4-5.0); ANION GAP 5 mmol/L (5-15); CALCIUM 8.6 mg/dL (8.5-10.1); CHLORIDE 112 mmol/L (98-107); CREATININE 1.05 mg/dL (0.7-1.3)
[2020-01-21] MEDS: CHLORDIAZEPOXIDE 25 MG CAPSULE PO PRN ×3 (05:22→13:59)
[2020-01-21 07:45] VITALS: BP 174/124
[2020-01-21] MEDS: LORazepam 2 MG/ML, 1ML IVPush PRN ×2 (07:50→10:05)
[2020-01-21] MEDS: PANTOPRAZOLE 40 MG IV IVPush SCH (07:51)
[2020-01-21] MEDS: SENNA/DOCUSATE TABLET PO SCH (07:58)
[2020-01-21 10:27] VITALS: BP 168/102
[2020-01-21 12:46] VITALS: BP 157/101
[2020-01-21 18:44] VITALS: BP 131/83
[2020-01-21] MEDS ORDERED: RISPERIDONE 0.5 MG TABLET PO SCH (21:00)
[2020-01-22 01:00] VITALS: BP 119/83
[2020-01-22] MEDS: FOLIC ACID IV SCH (01:34)
[2020-01-22] MEDS: MVI ADULT IV SCH (01:34)
[2020-01-22] MEDS: [UNRECOGNIZED DRUG - OTHER] IV SCH (01:34)
[2020-01-22] MEDS: THIAMINE IV SCH (01:34)
[2020-01-22] MEDS ORDERED: PANTOPRAZOLE 40MG TABLET PO SCH (06:00)
[2020-01-22 06:40] LABS: BASOPHILS # (AUTO) 0.03 x10^3/uL (0-0.1); BASOPHILS % (AUTO) 1 % (0-1); EOSINOPHILS # (AUTO) 0.14 x10^3/uL (0-0.4); EOSINOPHILS % (AUTO) 2 % (1-7); LYMPHOCYTES # (AUTO) 1.42 x10^3/uL (1-3.4); LYMPHOCYTES % (AUTO) 22 % (22-44); MD NO; MEAN CORPUSCULAR HEMOGLOBIN 32.7 pg (27.5-34.5); MEAN CORPUSCULAR HGB CONC 33.8 g/dL (33.2-36.2); MEAN CORPUSCULAR VOLUME 96.7 fL (81-97); MEAN PLATELET VOLUME 8.1 fL (7.4-10.4); MONOCYTES # (AUTO) 0.73 x10^3/uL (0.2-0.8); MONOCYTES % (AUTO) 11 % (2-9); NEUTROPHILS % (AUTO) 64 % (42-75); PLATELET COUNT 169 x10^3/uL (130-400); RED BLOOD COUNT 4.48 x10^6/uL (4.38-5.82)
[2020-01-22 06:56] LABS: ALBUMIN 3.6 g/dL (3.4-5.0); ANION GAP 7 mmol/L (5-15); CALCIUM 8.3 mg/dL (8.5-10.1); CHLORIDE 113 mmol/L (98-107)
[2020-01-22 07:37] VITALS: BP 144/86
[2020-01-22] MEDS: CHLORDIAZEPOXIDE 25 MG CAPSULE PO PRN (08:25)
[2020-01-22] MEDS: SENNA/DOCUSATE TABLET PO SCH (08:25)
[2020-01-22 13:23] VITALS: BP 126/83
[2020-01-22] MEDS ORDERED: RISP0.5T24 PO (13:56)
[2020-01-22] MEDS ORDERED: POTASSIUM CHLORIDE 20 MEQ TAB.ER.PRT PO ONE (14:00)
== END 2020-01-22 15:44 | disposition home or self-care (01) | DRG 885 ==
LOC: ED 21:24 → EDIP 21:33 → 4EST 01-20 00:07 → DCLOUNGE 01-22 15:30
PROVIDERS: ADMIT Internal Medicine; ATTEND Family Medicine
DX: F23 Brief psychotic disorder (principal); F10.239 Alcohol dependence with withdrawal, unspecified; E11.9 Type 2 diabetes mellitus without complications; E66.9 Obesity, unspecified; E86.0 Dehydration; F12.90 Cannabis use, unspecified, uncomplicated; I10 Essential (primary) hypertension; I48.91 Unspecified atrial fibrillation; Z82.3 Family history of stroke; Z82.49 Family history of ischemic heart disease and other diseases of the circulatory system; Z68.32 Body mass index [BMI] 32.0-32.9, adult
CPT/HCPCS: 36415; J7121; 80048; 80053; 80069; 80307; 82550; 83735; 84100; 84443; 85025; 96365; 99291; G0378; J3411; C9113; J0360; J2060; J7030; J7040